=== PATIENT | female | born 1990 | race Two or more races ===

== ENCOUNTER 2021-04-12 05:21 | Inpatient (IN) | payer OTHER ==
[~2021-04-12] VITALS: Ht 160 cm; Wt 61.0 kg
[2021-04-13] MEDS ORDERED: IBUPROFEN800 MG PO (06:59)
[2021-04-13] MEDS ORDERED: SIMETHICONE125 M1 PO (06:59)
[2021-04-13] MEDS ORDERED: GABAPENTIN300 MG PO (06:59)
== END 2021-04-13 10:05 | disposition home or self-care (01) | DRG 743 ==
LOC: CIR.AMB 05:21 → OB/GYN 11:30 → O/R 11:30 → OB/GYN 11:35
PROVIDERS: ADMIT Obstetrics & Gynecology; ATTEND Obstetrics & Gynecology
PROC: 0UB10ZZ Excision of Left Ovary, Open Approach (ICD-10-PCS; principal; 2021-04-12 07:00)
DX: D27.1 Benign neoplasm of left ovary (principal)